=== PATIENT | female | born 1940 | race African-American/Black ===

== ENCOUNTER 2017-06-30 20:35 | Emergency (ER) | payer MEDICARE ==
[~2017-06-30] VITALS: Ht 165.1 cm; Wt 102.0 kg
[2017-06-30] MEDS ORDERED: ALPRAZOLAM 0.5 MG TABLET PO ONE (22:30)
[2017-06-30] MEDS ORDERED: SODIUM CHLORIDE 0.9% 1,000 ML IV ONE (22:46)
[2017-06-30] MEDS ORDERED: ONDANSETRON HCL 4MG/2ML VIAL IV STA (22:46)
[2017-06-30 23:34] VITALS: BP 138/77
== END 2017-06-30 23:44 | disposition left against medical advice (07) ==
LOC: ER 21:37
DX: F41.9 Anxiety disorder, unspecified (principal); R11.2 Nausea with vomiting, unspecified; I10 Essential (primary) hypertension; E89.0 Postprocedural hypothyroidism; Z92.21 Personal history of antineoplastic chemotherapy; Z85.79 Personal history of other malignant neoplasms of lymphoid, hematopoietic and related tissues
CPT/HCPCS: 99283; J7030

== ENCOUNTER 2022-04-14 21:02 | Inpatient (IN) | payer MEDICARE, BC ==
[~2022-04-14] VITALS: Ht 170.2 cm; Wt 127.5 kg
[2022-04-14] MEDS ORDERED: ALPR-394 PO (22:09)
[2022-04-14] MEDS ORDERED: NIFE-33 PO (22:10)
[2022-04-14] MEDS ORDERED: LEVO100T PO (22:11)
[2022-04-14] MEDS ORDERED: POTA-205 PO (22:11)
[2022-04-14] MEDS ORDERED: LOSA100T32 PO (22:11)
[2022-04-14] MEDS ORDERED: ROSU5TAB PO (22:12)
[2022-04-14] MEDS ORDERED: HALOPERIDOL LACTATE 5MG/ML VIAL IM ONE (22:15)
[2022-04-14 23:15] LABS: BASOPHILS % 0.9 % (0.0-2.0); CHLORIDE 103 mEq/L (98-107); EOSINOPHILS % 0.8 % (0.0-5.0); HEMATOCRIT. 38.1 % (36.0-48.0); HEMOGLOBIN. 12.6 g/dL (12.0-16.0); LYMPHOCYTES % 22.3 % (20.0-50.0); MEAN CORPUSCULAR VOLUME 88.1 fL (81.0-99.0); MEAN PLATELET VOLUME 7.9 fl (7.4-10.4); MONOCYTES % 7.6 % (2.0-8.0); NEUTROPHILS % 68.4 % (40.0-76.0); PLATELET 165 x1000/uL (130-400); RED BLOOD CELL COUNT 4.33 mill/uL (4.2-5.4); RED CELL DISTRIBUTION WIDTH 13.2 % (11.6-14.6)
[2022-04-14 23:24] LABS: ETHANOL BLOOD < 10 mg/dL
[2022-04-14 23:30] LABS: CLARITY URINE CLEAR (CLEAR); COLOR URINE YELLOW (YELLOW); KETONES URINE NEGATIVE (NEGATIVE); LEUKOCYTE ESTERASE URINE NEGATIVE (NEGATIVE); NITRITE URINE NEGATIVE (NEGATIVE); OCCULT BLOOD URINE NEGATIVE (NEGATIVE); PH URINE 7.5 (4.5-8.0); PROTEIN URINE NEGATIVE (NEGATIVE); SPECIFIC GRAVITY URINE 1.016 (1.005-1.030); UROBILINOGEN URINE 0.2 E.U./dL (0.2-1.0)
[2022-04-14 23:41] LABS: PROTHROMBIN TIME 10.9 sec (9.6-11.0)
[2022-04-14 23:58] LABS: *AMPHETAMINES SCREEN URINE NEGATIVE (NEGATIVE); *BARBITURATES SCREEN URINE NEGATIVE (NEGATIVE); *BENZODIAZEPINES SCREEN URINE NEGATIVE (NEGATIVE); *COCAINE SCREEN URINE NEGATIVE (NEGATIVE); CANNABINOID URINE SCREEN NEGATIVE (NEGATIVE); METHADONE URINE SCREEN NEGATIVE (NEGATIVE); OPIATES URINE SCREEN NEGATIVE (NEGATIVE); PHENCYCLIDINE URINE SCREEN NEGATIVE (NEGATIVE)
[2022-04-15] VITALS (8 sets, daily range): BP systolic 110–183; BP diastolic 54–100
[2022-04-15] MEDS ORDERED: IOHEXOL-350 100 ML BOTTLE ONE (01:21)
[2022-04-15 06:14] LABS: T4 FREE 1.22 ng/dL (0.76-1.46)
[2022-04-15] MEDS ORDERED: ACETAMINOPHEN 325MG TABLET PO PRN ×2 (07:15)
[2022-04-15] MEDS ORDERED: IPRATROPIUM/ALBUTEROL 0.5-3(2.5)MG/3ML NEB NEB PRN (07:15)
[2022-04-15] MEDS ORDERED: ONDANSETRON HCL 4MG/2ML INJ IV PRN (07:15)
[2022-04-15] MEDS ORDERED: MAGNESIUM/ALUMINUM HYDROXIDE/SIMETHICONE 30ML UDC PO PRN (07:15)
[2022-04-15] MEDS ORDERED: ENOXAPARIN 40MG/0.4ML SYR SUBCUT SCH (07:15)
[2022-04-15] MEDS ORDERED: HYDROCODONE/ACETAMINOPHEN 5/325MG TABLET PO PRN (07:15)
[2022-04-15] MEDS ORDERED: GUAIFENESIN 200MG/10ML SUGAR FREE UDC PO PRN (07:15)
[2022-04-15] MEDS ORDERED: NALOXONE HCL 0.4MG/ML VIAL IV PRN (07:30)
[2022-04-15] MEDS: ENOXAPARIN 30MG/0.3ML SYR SUBCUT SCH ×2 (09:00→20:47)
[2022-04-15] MEDS: CLONIDINE 0.1MG TABLET PO PRN (21:59)
[2022-04-15] MEDS ORDERED: LOSARTAN POTASSIUM 100 MG TABLET PO SCH (22:30)
[2022-04-15] MEDS: ALPRAZOLAM 0.5 MG TABLET PO PRN (22:45)
[2022-04-16] VITALS: BP 121/70
[2022-04-16 04:00] VITALS: BP 110/60
[2022-04-16 06:36] LABS: BASOPHILS % 0.7 % (0.0-2.0); EOSINOPHILS % 2.2 % (0.0-5.0); HEMATOCRIT. 35.9 % (36.0-48.0); HEMOGLOBIN. 12.1 g/dL (12.0-16.0); LYMPHOCYTES % 34.2 % (20.0-50.0); MEAN CORPUSCULAR HEMOGLOBIN 29.7 pg (28.0-32.0); MEAN CORPUSCULAR VOLUME 87.8 fL (81.0-99.0); MEAN PLATELET VOLUME 8.5 fl (7.4-10.4); MONOCYTES % 9.1 % (2.0-8.0); NEUTROPHILS % 53.8 % (40.0-76.0); PLATELET 167 x1000/uL (130-400); RED BLOOD CELL COUNT 4.08 mill/uL (4.2-5.4); RED CELL DISTRIBUTION WIDTH 13.8 % (11.6-14.6)
[2022-04-16 07:07] LABS: PHOSPHORUS 3.5 mg/dL (2.5-4.9)
[2022-04-16] MEDS ORDERED: LEVOTHYROXINE SODIUM 100MCG TABLET PO SCH (07:30)
[2022-04-16] MEDS: CLONIDINE 0.1MG TABLET PO PRN ×2 (07:34→16:14)
[2022-04-16 08:00] VITALS: BP 176/85
[2022-04-16] MEDS: POTASSIUM CHLORIDE 20MEQ TABLET SR PO SCH ×2 (08:51→16:44)
[2022-04-16] MEDS: ENOXAPARIN 30MG/0.3ML SYR SUBCUT SCH (08:54)
[2022-04-16] MEDS ORDERED: NIFEDIPINE XL 30MG TAB PO SCH (09:00)
[2022-04-16] MEDS: ALPRAZOLAM 0.5 MG TABLET PO PRN ×2 (09:04→16:13)
[2022-04-16 12:00] VITALS: BP 158/75
[2022-04-16 16:00] VITALS: BP 150/22
[2022-04-16 16:55] VITALS: BP 150/72
== END 2022-04-16 17:25 | disposition home or self-care (01) | DRG 92 ==
LOC: ER 21:02 → EDBEDREQ 04-15 02:43 → EDBEDREQSVC 04-15 02:43 → EDBEDREQTM 04-15 02:43 → EDBEDREQDT 04-15 02:43 → SUPCPDRO 04-15 07:04 → 5EST 04-15 10:52
PROVIDERS: ADMIT Internal Medicine; ATTEND Internal Medicine
DX: G92.8 Other toxic encephalopathy (principal); E66.2 Morbid (severe) obesity with alveolar hypoventilation; Z68.41 Body mass index [BMI] 40.0-44.9, adult; I10 Essential (primary) hypertension; E03.9 Hypothyroidism, unspecified; F41.9 Anxiety disorder, unspecified; R27.0 Ataxia, unspecified; Z79.899 Other long term (current) drug therapy; Z85.6 Personal history of leukemia; Z79.890 Hormone replacement therapy; Z85.72 Personal history of non-Hodgkin lymphomas; Z86.59 Personal history of other mental and behavioral disorders; Z71.3 Dietary counseling and surveillance
CPT/HCPCS: 36415; 70496; 70498; 70551; 71045; 80048; 80053; 80305; 80320; 81003; 82140; 82962; 83605; 83735; 84100; 84439; 84443; 84484; 85025; 93005; 95816; 99291; J1630; J1650; Q9967; G0480

== ENCOUNTER 2024-02-05 10:05 | Emergency (ER) | payer MEDICARE, BC ==
[~2024-02-05] VITALS: Ht 167.6 cm; Wt 81.0 kg
[~2024-02-05 10:05] MED LIST: ALPR-394 PO; LEVO100T PO; LOSA100T33 PO; NIFE-33 PO; POTA-205 PO; ROSU5TAB PO
[2024-02-05 10:12] VITALS: O2SAT 100
[2024-02-05 12:00] LABS: BASOPHILS % 0.8 % (0.0-2.0); EOSINOPHILS % 1.2 % (0.0-5.0); HEMATOCRIT. 35.7 % (36.0-48.0); LYMPHOCYTES % 30.3 % (20.0-50.0); MEAN CORPUSCULAR HEMOGLOBIN 29.3 pg (28.0-32.0); MEAN CORPUSCULAR HGB CONC 33.7 g/dL (31.0-37.0); MEAN PLATELET VOLUME 8.7 fl (7.4-10.4); MONOCYTES % 10.4 % (2.0-8.0); NEUTROPHILS % 57.3 % (40.0-76.0); PLATELET 151 x1000/uL (130-400); RED BLOOD CELL COUNT 4.11 mill/uL (4.2-5.4); RED CELL DISTRIBUTION WIDTH 13.7 % (11.6-14.6); WHITE BLOOD COUNT 3.9 x1000/uL (4.5-11.0)
[2024-02-05 12:03] LABS: CHLORIDE 101 mEq/L (98-107); POTASSIUM 3.9 mEq/L (3.5-5.1); SODIUM 133 mEq/L (136-145)
[2024-02-05 12:04] LABS: CARBON DIOXIDE 30 mEq/L (21-32)
[2024-02-05 12:09] LABS: GLUCOSE 109 mg/dL (70-105); TROPONIN I HIGH SENSITIVITY 11 ng/L (3.0-34); UREA NITROGEN BLOOD 19 mg/dL (9-23)
[2024-02-05 14:12] VITALS: BP 157/80; PULSE 66; RESP 18; TEMP 98.7
== END 2024-02-05 14:12 | disposition home or self-care (01) ==
LOC: ER 10:05
DX: R60.0 Localized edema (principal); I10 Essential (primary) hypertension; Z98.890 Other specified postprocedural states
CPT/HCPCS: 36415; 71045; 80048; 83880; 84484; 85025; 93005; 93971; 99285

== ENCOUNTER 2024-02-27 21:20 | Emergency (ER) | payer MEDICARE, BC ==
[~2024-02-27] VITALS: Ht 170.2 cm; Wt 66.0 kg
[2024-02-27 21:35] VITALS: O2SAT 100
[2024-02-27 23:24] LABS: BASOPHILS % 0.9 % (0.0-2.0); EOSINOPHILS % 1.1 % (0.0-5.0); HEMATOCRIT. 39.8 % (36.0-48.0); HEMOGLOBIN. 13.7 g/dL (12.0-16.0); LYMPHOCYTES % 23.3 % (20.0-50.0); MEAN CORPUSCULAR HEMOGLOBIN 30.1 pg (28.0-32.0); MEAN CORPUSCULAR HGB CONC 34.4 g/dL (31.0-37.0); MEAN CORPUSCULAR VOLUME 87.5 fL (81.0-99.0); MEAN PLATELET VOLUME 8.5 fl (7.4-10.4); MONOCYTES % 8.9 % (2.0-8.0); NEUTROPHILS % 65.8 % (40.0-76.0); PLATELET 157 x1000/uL (130-400); RED BLOOD CELL COUNT 4.55 mill/uL (4.2-5.4); RED CELL DISTRIBUTION WIDTH 13.6 % (11.6-14.6); WHITE BLOOD COUNT 4.7 x1000/uL (4.5-11.0)
[2024-02-27 23:33] LABS: CHLORIDE 101 mEq/L (98-107); POTASSIUM 4.5 mEq/L (3.5-5.1); SODIUM 133 mEq/L (136-145)
[2024-02-27 23:34] LABS: CALCIUM 9.4 mg/dL (8.7-10.4); CARBON DIOXIDE 29 mEq/L (21-32)
[2024-02-27 23:39] LABS: CREATININE 0.9 mg/dL (0.6-1.0); GLUCOSE 109 mg/dL (70-105); UREA NITROGEN BLOOD 12 mg/dL (9-23)
[2024-02-27 23:42] LABS: TROPONIN I HIGH SENSITIVITY 8 ng/L (3.0-34)
[2024-02-28] MEDS: ALPRAZOLAM 0.5 MG TABLET PO ONE (00:20)
[2024-02-28 00:39] VITALS: BP 155/67; PULSE 73; RESP 18; TEMP 97.6
== END 2024-02-28 01:20 | disposition home or self-care (01) ==
LOC: ER 21:20
DX: F41.9 Anxiety disorder, unspecified (principal); I10 Essential (primary) hypertension; Z79.899 Other long term (current) drug therapy
CPT/HCPCS: 36415; 71045; 80048; 83880; 84484; 85025; 93005; 99285